=== PATIENT | female | born 1990 | race African-American/Black ===

== ENCOUNTER 2022-05-27 00:21 | Inpatient (IN) | payer SELFPAY ==
[~2022-05-27] VITALS: Ht 167.6 cm; Wt 101.2 kg
[2022-05-27] MEDS ORDERED: AMPICILLIN 2GM in NS 100ML 100 ML IV NR (03:15)
[2022-05-27] MEDS ORDERED: LIDOCAINE HCL 1% 20ML VIAL (Pyxis) INJ INFIL SCH (03:15)
[2022-05-27] MEDS: MISOPROSTOL 100MCG TABLET VG SCH ×4 (04:11→16:30)
[2022-05-27] MEDS: LACTATED RINGERS 1,000 ML IV SCH ×3 (04:12→17:41)
[2022-05-27 04:58] LABS: BASOPHILS % 0.3 % (0.0-2.0); EOSINOPHILS % 2.2 % (0.0-5.0); HEMATOCRIT. 33.2 % (36.0-48.0); HEMOGLOBIN. 10.6 g/dL (12.0-16.0); LYMPHOCYTES % 31.6 % (20.0-50.0); MEAN CORPUSCULAR HEMOGLOBIN 26.2 pg (28.0-32.0); MEAN CORPUSCULAR VOLUME 82.1 fL (81.0-99.0); MEAN PLATELET VOLUME 10.1 fl (7.4-10.4); MONOCYTES % 10.5 % (2.0-8.0); NEUTROPHILS % 55.4 % (40.0-76.0); PLATELET 170 x1000/uL (130-400); RED BLOOD CELL COUNT 4.05 mill/uL (4.2-5.4); RED CELL DISTRIBUTION WIDTH 18.1 % (11.6-14.6)
[2022-05-27 05:38] LABS: INR 0.9; PARTIAL THROMBOPLASTIN TIME 31.7 sec (23.4-31.0); PROTHROMBIN TIME 10.2 sec (9.6-11.0)
[2022-05-27] MEDS ORDERED: pnv BC (06:48)
[2022-05-27] MEDS ORDERED: FERR89TA MT (06:49)
[2022-05-27] MEDS ORDERED: LIDOCAINE HCL 2%/EPINEPHRINE 1:100,000 20 ML VIAL INFIL ONE (07:00)
[2022-05-27 07:56] LABS: CLARITY URINE CLOUDY (CLEAR); COLOR URINE YELLOW (YELLOW)
[2022-05-27 07:57] LABS: KETONES URINE TRACE (NEGATIVE); PROTEIN URINE 1+ (NEGATIVE)
[2022-05-27 07:58] LABS: LEUKOCYTE ESTERASE URINE 1+ (NEGATIVE); NITRITE URINE NEGATIVE (NEGATIVE); OCCULT BLOOD URINE TRACE (NEGATIVE); UROBILINOGEN URINE 0.2 E.U./dL (0.2-1.0)
[2022-05-27 08:21] LABS: *AMPHETAMINES SCREEN URINE NEGATIVE (NEGATIVE); *BARBITURATES SCREEN URINE NEGATIVE (NEGATIVE); *BENZODIAZEPINES SCREEN URINE NEGATIVE (NEGATIVE); *COCAINE SCREEN URINE NEGATIVE (NEGATIVE); CANNABINOID URINE SCREEN NEGATIVE (NEGATIVE); METHADONE URINE SCREEN NEGATIVE (NEGATIVE); OPIATES URINE SCREEN NEGATIVE (NEGATIVE); PHENCYCLIDINE URINE SCREEN NEGATIVE (NEGATIVE)
[2022-05-27] MEDS: AMPICILLIN 1,000 MG in SODIUM CHLORIDE 0.9% 50 ML IV SCH ×3 (09:45→22:00)
[2022-05-27] MEDS ORDERED: NALOXONE HCL 0.4 MG/ML 1ML VIAL IM PRN (19:00)
[2022-05-27] MEDS ORDERED: OXYTOCIN 30 UNITS/500ML NS PMX 500 ML IV SCH (19:00)
[2022-05-27] MEDS ORDERED: BUTORPHANOL TARTRATE 2 MG/ML VIAL IV PRN (19:00)
[2022-05-27] MEDS ORDERED: FENTANYL CITRATE/PF 50MCG/ML 2ML VIAL ONE (21:02)
[2022-05-27] MEDS ORDERED: MORPHINE SULFATE/PF 1MG/ML 10ML AMP ONE (21:03)
[2022-05-27] MEDS ORDERED: ONDANSETRON HCL 4MG/2ML INJ ONE (21:03)
[2022-05-27] MEDS ORDERED: CEFAZOLIN SODIUM 1000MG/VIAL ONE (21:03)
[2022-05-27] MEDS ORDERED: OXYTOCIN 10 UNITS/ML 1ML ONE (21:03)
[2022-05-27] MEDS ORDERED: EPHEDRINE SULFATE 50MG/ML VIAL ONE (21:03)
[2022-05-27] MEDS ORDERED: ROPIVACAINE HCL/PF EPIDURAL 200 ML EPI ONE (23:45)
[2022-05-28] MEDS: LACTATED RINGERS 1,000 ML IV SCH ×2 (02:38→13:14)
[2022-05-28] MEDS: AMPICILLIN 1,000 MG in SODIUM CHLORIDE 0.9% 50 ML IV SCH ×2 (04:00→10:51)
[2022-05-28] MEDS ORDERED: FENTANYL CITRATE/PF 50MCG/ML 5ML VIAL ONE (14:09)
[2022-05-28] MEDS ORDERED: ROPIVACAINE HCL/PF EPIDURAL 200 ML EPI ONE (14:10)
[2022-05-28] MEDS ORDERED: AMPICILLIN 1,000 MG in SODIUM CHLORIDE 0.9% 50 ML IV SCH (17:00)
[2022-05-28] MEDS ORDERED: ONDANSETRON HCL 4MG/2ML INJ IV PRN (19:30)
[2022-05-28] MEDS ORDERED: FENTANYL CITRATE/PF 50MCG/ML 2ML VIAL ONE (20:10)
[2022-05-28] MEDS ORDERED: OXYTOCIN 10 UNITS/ML 1ML ONE (21:00)
[2022-05-28] MEDS ORDERED: ONDANSETRON HCL 4MG/2ML INJ ONE (21:00)
[2022-05-28] MEDS ORDERED: KETOROLAC 60MG/2ML VIAL IM ONE (21:24)
[2022-05-28] MEDS ORDERED: DIPHENHYDRAMINE 50MG/ML VIAL ONE (21:25)
[2022-05-28] MEDS ORDERED: RHO(D) IMMUNE GLOBULIN 300 MCG/SYR IM PRN (22:30)
[2022-05-28] MEDS ORDERED: DIPHENHYDRAMINE 50MG/ML VIAL IV PRN (22:30)
[2022-05-28] MEDS ORDERED: KETOROLAC 30MG/ML VIAL IV SCH (22:30)
[2022-05-28] MEDS ORDERED: IBUPROFEN 400MG TABLET PO PRN (22:30)
[2022-05-28] MEDS ORDERED: HYDROMORPHONE HCL/PF 2MG/ML CPJ IM PRN (22:30)
[2022-05-28] MEDS ORDERED: DIPHENHYDRAMINE 25MG CAPSULE PO PRN (22:30)
[2022-05-28] MEDS ORDERED: BISACODYL 10MG SUPP PR PRN (22:30)
[2022-05-29 03:00] VITALS: BP 124/80
[2022-05-29 06:42] LABS: BASOPHILS % 0.2 % (0.0-2.0); EOSINOPHILS % 0.5 % (0.0-5.0); HEMATOCRIT. 32.1 % (36.0-48.0); HEMOGLOBIN. 10.3 g/dL (12.0-16.0); LYMPHOCYTES % 18.7 % (20.0-50.0); MEAN CORPUSCULAR HEMOGLOBIN 26.5 pg (28.0-32.0); MEAN CORPUSCULAR VOLUME 82.6 fL (81.0-99.0); MEAN PLATELET VOLUME 9.7 fl (7.4-10.4); MONOCYTES % 9.2 % (2.0-8.0); NEUTROPHILS % 71.4 % (40.0-76.0); PLATELET 158 x1000/uL (130-400); RED BLOOD CELL COUNT 3.88 mill/uL (4.2-5.4); RED CELL DISTRIBUTION WIDTH 18.1 % (11.6-14.6)
[2022-05-29 07:45] VITALS: BP 126/47
[2022-05-29] MEDS: PRENATAL VIT/FE FUMARATE/FA TABLET PO SCH (08:55)
[2022-05-29] MEDS: FERROUS SULFATE 325MG TABLET PO SCH ×3 (08:56→17:26)
[2022-05-29 16:16] VITALS: BP 127/79
[2022-05-29] MEDS: IBUPROFEN 800MG TABLET PO PRN ×2 (17:26→22:44)
[2022-05-29 20:00] VITALS: BP 130/80
[2022-05-30 04:00] VITALS: BP 130/81
[2022-05-30] MEDS: IBUPROFEN 800MG TABLET PO PRN ×3 (04:13→23:10)
[2022-05-30 07:30] VITALS: BP 112/51
[2022-05-30] MEDS: FERROUS SULFATE 325MG TABLET PO SCH ×3 (07:58→17:49)
[2022-05-30] MEDS: PRENATAL VIT/FE FUMARATE/FA TABLET PO SCH (07:58)
[2022-05-30 15:37] VITALS: BP 139/79
[2022-05-30 20:00] VITALS: BP 132/78
[2022-05-31] MEDS ORDERED: INFLUENZA VACCINE 05/PF 0.5 ML SYRINGE IM ONE (03:00)
[2022-05-31 04:30] VITALS: BP 132/84
[2022-05-31] MEDS: IBUPROFEN 800MG TABLET PO PRN (04:30)
[2022-05-31 08:00] VITALS: BP 132/88
[2022-05-31] MEDS: FERROUS SULFATE 325MG TABLET PO SCH (09:00)
[2022-05-31] MEDS: PRENATAL VIT/FE FUMARATE/FA TABLET PO SCH (09:00)
== END 2022-05-31 13:00 | disposition home or self-care (01) | DRG 540 ==
LOC: 8 EST LDRP 00:21 → OBSVTOIN 00:21 → 8EST 05-28 23:58
PROVIDERS: ADMIT Obstetrics & Gynecology; ATTEND Obstetrics & Gynecology
PROC: 10D00Z1 Extraction of Products of Conception, Low, Open Approach (ICD-10-PCS; principal; 2022-05-28)
DX: O34.13 Maternal care for benign tumor of corpus uteri, third trimester (principal); O99.214 Obesity complicating childbirth; O98.52 Other viral diseases complicating childbirth; Z20.822 Contact with and (suspected) exposure to COVID-19; O99.02 Anemia complicating childbirth; O32.2XX0 Maternal care for transverse and oblique lie, not applicable or unspecified; O62.2 Other uterine inertia; D25.9 Leiomyoma of uterus, unspecified; Z3A.40 40 weeks gestation of pregnancy; Z37.0 Single live birth; Z80.3 Family history of malignant neoplasm of breast; Z83.3 Family history of diabetes mellitus
CPT/HCPCS: 36415; 80305; 81003; 85025; 86592; 86703; 86762; 86850; 86900; 87340; 87426; 88307; 90686; 99281; G0378; J0290; J0690; J1200; J1885; J2274; J2405; J2795; J3010; J3490; J7120; A4315; J2590